=== PATIENT | male | born 1980 | race Caucasian/White ===

== ENCOUNTER 2017-01-28 07:24 | Day surgery (SDC) | payer BC ==
[2017-01-25 16:19] VITALS: BMI 29.5
--- NOTE | 2017-01-27 21:09 | HPN ---
Date/Time of Note Date/Time of Note DATE: 01/27/17 TIME: 21:09 Interval H&P Admission Note Pt. seen H&P reviewed: No system changes LESLY GONZALEZ MD Jan 27, 2017 21:09
[~2017-01-28] VITALS: Ht 162.6 cm; Wt 81.0 kg
[2017-01-28] VITALS (9 sets, daily range): BP systolic 110–142; BP diastolic 46–89; PULSE 73–97; RESP 14–20; Ht 162.6 cm; Wt 81.0 kg
[2017-01-28] MEDS ORDERED: LISI20TA11 PO (07:52)
[2017-01-28] MEDS ORDERED: LOVA20TA PO (07:53)
--- NOTE | 2017-01-28 09:10 | OPR ---
Date/Time of Note Date/Time of Note DATE: 01/28/17 TIME: 09:07 Operative Report Procedure Date: Jan 28, 2017 Preoperative Diagnosis mass volar/ and dorsal lelt index b about dip joint Postoperative Diagnosis same likely giant cell tumor tendon sheath Operation Performed excisional biopsy Surgeon: LESLY GONZALEZ MD Anesthesia: MAC Anesthesiologist: ROMMEL HAINES MD Estimated Blood Loss: 0 - 10 ml's Specimens mass for pathologic diagnosis Complications patient warned of possible reoccurrance Pt Condition Post Procedure: stable LESLY GONZALEZ MD Jan 28, 2017 09:10
[2017-01-28] MEDS ORDERED: MEPERIDINE 25 MG INJ IV PRN (09:30)
[2017-01-28] MEDS ORDERED: FENTAnyl 50 MCG/ML VIAL IV PRN (09:30)
[2017-01-28] MEDS ORDERED: DIPHENHYDRAMINE 50 MG INJ IV PRN (09:30)
[2017-01-28] MEDS ORDERED: ONDANSETRON 4 MG INJ IV PRN (09:30)
[2017-01-28] MEDS ORDERED: PROCHLORPERAZINE 10 MG INJ IV PRN (09:30)
[2017-01-28] MEDS ORDERED: FENTAnyl 50 MCG/ML VIAL ONE (09:34)
[2017-01-28] MEDS ORDERED: PROPOFOL 20 ML ONE (09:34)
[2017-01-28] MEDS ORDERED: LIDOCAINE 2% (SDV) 5 ML INJ ONE (09:34)
[2017-01-28] MEDS ORDERED: MIDAZOLAM 1 MG/ML 2 ML INJ ONE (09:34)
[2017-01-28] MEDS ORDERED: METOCLOPRAMIDE 10 MG INJ ONE (09:51)
[2017-01-28] MEDS ORDERED: DEXAMETHASONE 4 MG/ML 1 ML INJ ONE (09:51)
[2017-01-28] MEDS ORDERED: CEFAZOLIN 1 GM INJ ONE (09:51)
[2017-01-28] MEDS ORDERED: ONDANSETRON 4 MG INJ ONE (09:51)
[2017-01-28] MEDS ORDERED: LIDOCAINE 1% (MPF) 30 ML INJ ONE (09:57)
[2017-01-28] MEDS: HYDROmorphONE (0.2 MG/ML) 10ML SYG IV PRN ×3 (10:53→11:09)
--- NOTE | 2017-01-28 11:28 | OPR ---
DATE OF OPERATION: PREOPERATIVE DIAGNOSIS: Mass, cyst, tumor, dorsal and volar aspect left index finger circumferential DIP joint and middle phalanx index finger, left. 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 SURGEON: Lesly Gardner MD WOOD GOUGER: Staff. TERMINAL GAUGER: Dr. Melendez. ANESTHESIA TECHNIQUE: General anesthetic by the anesthesiologist. SURGICAL PAUSE: I examined the patient in the preop holding area, jojo in the surgical incisions, showed the drawn surgical incision to the patient. 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 The evidence for that is location, feel, appearance and the fact that it is both dorsal and volar. Since a giant cell tumor of tendon sheath typically comes from the joint, that is the most logical explanation for a mass that came out dorsally and volarly, That it came out of the joint, both dorsally and volarly, and the most common lesion does that is giant cell tumor of tendon sheath. I also told the patient a story from residency where I found one of these in the pediatric age group. Out of curiosity I went to [facility] and collected all the pediatric cases I could find. I was just curious. It proved to be 12 cases in that age group with a 50% reoccurrence rate. The point of the story is the high reoccurrence rate and I warn every patient about reoccurrence. INFORMED CONSENT: At the time we scheduled the operative procedure, we talked to patient about risks and hazards of surgery, mentioning OP mortality, wound infection, nerve injury, good result, bad and potential complications and that this pathology on always mentioned reoccurrence. It is intrinsic to the anatomy of the nature of the lesion which causes the high reoccurrence rate. DESCRIPTION OF PROCEDURE: The patient was taken to surgery, anesthetized as above, sterile prep and drape performed. A [place] drain placed around the base of the finger. First, I made a dorsal radial incision over the dorsal portion of the mass and found a large, firm, hard mass that was on the dorsum and underneath the extensor tendon and coming out of the joint, and removed every bit that I could see. I flipped finger over and went volarly. I made another longitudinal and somewhat Z-shaped incision, found more tumor coming out and tenting the digital nerve on the ulnar _ side of the finger. I spent a good deal of time trying to tease that digital nerve away from this mass and partially failed. I injured that nerve. I got the mass out and then spent some time doing a microscopic repair of the digital nerve using 15-power magnification and 8-0 nylon to repair that nerve injury. I closed the wounds loosely with interrupted Vicryl Rapide suture and splinted the hand with the DIP joint flexed to protect my nerve repair for a few weeks. POSTOPERATIVE MEDICATION: 1. Hydrocodone with acetaminophen. 2. Keflex. FOLLOWUP: Follow up in my office will be in 2 weeks. He is in a bulky splint with the finger flexed in towards the palm to protect the nerve repair. The operative procedure was around 45 minutes. The patient is awake in recovery. Dictated By: LESLY LEON/EBONIE Conf#: [id number] DID#: [id number]
[2017-01-28] MEDS ORDERED: OXYCODONE/ACETAMINOPHEN (5/325) TAB PO ONE (12:17)
[2017-01-28] MEDS ORDERED: OXYCODONE/ACETAMINOPHEN (5/325) TAB PO PRN (12:17)
== END 2017-01-28 12:42 | disposition home or self-care (01) ==
LOC: SDS 07:24
PROVIDERS: ATTEND Orthopaedic Surgery Hand Surgery
DX: D48.5 Neoplasm of uncertain behavior of skin (principal); I10 Essential (primary) hypertension; E78.5 Hyperlipidemia, unspecified
CPT/HCPCS: 11423; 88307; J0690; J1100; J1170; J2250; J2405; J2765; J3010; Z7512; Z7610